=== PATIENT | female | born 1960 | race Caucasian/White ===

== ENCOUNTER 2021-07-03 10:02 | Outpatient (CLI) | payer BC | END 2021-07-03 10:03 | disposition home or self-care (01) | LOC: CSHMAMMO 10:02 | PROVIDERS: ATTEND Family Medicine Sports Medicine | DX: Z12.31 Encounter for screening mammogram for malignant neoplasm of breast (principal) | CPT/HCPCS: 77063; 77067 ==

== ENCOUNTER 2023-07-29 09:08 | Outpatient (CLI) | payer BC | END 2023-07-29 09:09 | disposition home or self-care (01) | LOC: CSHMAMMO 09:08 | PROVIDERS: ATTEND Family Medicine Sports Medicine | DX: Z12.31 Encounter for screening mammogram for malignant neoplasm of breast (principal) | CPT/HCPCS: 77063; 77067 ==